=== PATIENT | male | born 1955 | race Caucasian/White ===

== ENCOUNTER → 2017-11-07 | Day surgery (SDC) | payer MEDICARE, MEDICAID ==
[~2017-11-07] VITALS: Ht 162.6 cm; Wt 56.7 kg
[2017-11-07] VITALS (13 sets, daily range): BP systolic 149–165; BP diastolic 64–79
[~2017-11-07] MED LIST: CARV25TA47 PO; CINA30 PO; FAMO20TA8 PO; FENTANYL CITRATE/PF 50MCG/ML 2ML VIAL IV ONE; FENTANYL CITRATE/PF 50MCG/ML 2ML VIAL ONE; FERR210T PO; FOLI0.8T23 PO; IOHEXOL-300 100 ML BOTTLE ONE; LIDOCAINE HCL 1% 20ML VIAL (Pyxis) INJ ONE; SODIUM BICARBONATE 4% (2.4MEQ) 5ML VIAL IV ONE
[2017-11-07 09:24] LABS: BASOPHILS % 1.3 % (0.0-2.0); EOSINOPHILS % 4.9 % (0.0-5.0); HEMATOCRIT. 36.8 % (42.0-52.0); HEMOGLOBIN. 12.2 g/dL (14.0-18.0); LYMPHOCYTES % 18.5 % (20.0-50.0); MEAN CORPUSCULAR HEMOGLOBIN 30.8 pg (28.0-32.0); MEAN CORPUSCULAR VOLUME 92.6 fL (80.0-94.0); MONOCYTES % 12.5 % (2.0-8.0); NEUTROPHILS % 62.8 % (40.0-76.0); PLATELET 139 x1000/uL (130-400); RED BLOOD CELL COUNT 3.97 mill/uL (4.7-6.1); RED CELL DISTRIBUTION WIDTH 16.4 % (11.6-14.6)
[2017-11-07 09:29] LABS: INR 1.1; PARTIAL THROMBOPLASTIN TIME 32.2 sec (23.4-31.0)
== END | disposition home or self-care (01) ==
LOC: RADANGIO 08:31
PROVIDERS: ATTEND Internal Medicine
DX: N18.6 End stage renal disease (principal); I74.5 Embolism and thrombosis of iliac artery; Q27.30 Arteriovenous malformation, site unspecified; I13.2 Hypertensive heart and chronic kidney disease with heart failure and with stage 5 chronic kidney disease, or end stage renal disease; I25.2 Old myocardial infarction; E46 Unspecified protein-calorie malnutrition; I50.9 Heart failure, unspecified; Z99.2 Dependence on renal dialysis; Z79.899 Other long term (current) drug therapy; Z87.891 Personal history of nicotine dependence; Z98.890 Other specified postprocedural states; Z82.49 Family history of ischemic heart disease and other diseases of the circulatory system
CPT/HCPCS: 36415; 36902; 82947; 84132; 85025; 85610; 85730; C1725; C1766; C1769; C1887; J1644; J3010; J3490; J7050; Q9967; 99152; 99153

== ENCOUNTER 2018-04-17 03:52 | Inpatient (IN) | payer MEDICARE, MEDICAID ==
[~2018-04-17] VITALS: Ht 315 cm; Wt 60.8 kg
[~2018-04-17 03:52] MED LIST changes: -FENTANYL CITRATE/PF 50MCG/ML 2ML VIAL IV ONE; -FENTANYL CITRATE/PF 50MCG/ML 2ML VIAL ONE; -IOHEXOL-300 100 ML BOTTLE ONE; -LIDOCAINE HCL 1% 20ML VIAL (Pyxis) INJ ONE; -SODIUM BICARBONATE 4% (2.4MEQ) 5ML VIAL IV ONE
[2018-04-17] MEDS ORDERED: LIDOCAINE HCL/PF 1% 10 MG/ML 5ML VIAL IJ ONE (04:30)
[2018-04-17] MEDS ORDERED: BACITRACIN ZINC OINT UDPKT TOP ONE (04:30)
[2018-04-17 05:40] LABS: BASOPHILS % 0.6 % (0.0-2.0); EOSINOPHILS % 3.5 % (0.0-5.0); HEMATOCRIT. 43.6 % (42.0-52.0); HEMOGLOBIN. 14.6 g/dL (14.0-18.0); LYMPHOCYTES % 17.1 % (20.0-50.0); MEAN CORPUSCULAR HEMOGLOBIN 32.1 pg (28.0-32.0); MEAN CORPUSCULAR VOLUME 96.1 fL (80.0-94.0); NEUTROPHILS % 65.8 % (40.0-76.0); PLATELET 123 x1000/uL (130-400); RED BLOOD CELL COUNT 4.54 mill/uL (4.7-6.1); RED CELL DISTRIBUTION WIDTH 15.4 % (11.6-14.6)
[2018-04-17 05:44] LABS: CHLORIDE 101 mEq/L (98-107)
[2018-04-17 05:45] LABS: INR 1.1; PARTIAL THROMBOPLASTIN TIME 31.7 sec (23.4-31.0); PROTHROMBIN TIME 10.6 sec (9.1-11.1)
[2018-04-17] MEDS ORDERED: ACETAMINOPHEN 500MG TABLET PO ONE (10:30)
[2018-04-17] MEDS ORDERED: ACETAMINOPHEN 500MG TABLET PO PRN (10:45)
[2018-04-17] MEDS ORDERED: BISACODYL 10MG SUPP PR PRN (11:00)
[2018-04-17 17:30] VITALS: BP 188/79
[2018-04-17] MEDS ORDERED: DIPHENHYDRAMINE 50MG/ML VIAL IV PRN (18:43)
[2018-04-17] MEDS ORDERED: GUAIFENESIN-DM 200MG-20MG/10ML UDC PO PRN (18:48)
[2018-04-17] MEDS ORDERED: ATOR20TA PO (19:03)
[2018-04-17 20:00] VITALS: BP 172/78
[2018-04-17] MEDS: CARVEDILOL 25MG TABLET PO SCH (20:35)
[2018-04-17] MEDS: FOLIC ACID/VITAMIN B COMP W-C TABLET PO SCH (20:35)
[2018-04-17] MEDS: FAMOTIDINE 20MG TABLET PO SCH (20:35)
[2018-04-18] VITALS (13 sets, daily range): BP systolic 119–198; BP diastolic 50–85
[2018-04-18] MEDS: LOSARTAN POTASSIUM 25 MG TABLET PO SCH ×2 (00:15→09:00)
[2018-04-18] MEDS ORDERED: AURYXIA PO (05:38)
[2018-04-18 06:51] LABS: BASOPHILS % 0.9 % (0.0-2.0); EOSINOPHILS % 4.2 % (0.0-5.0); HEMATOCRIT. 40.4 % (42.0-52.0); HEMOGLOBIN. 13.5 g/dL (14.0-18.0); LYMPHOCYTES % 19.6 % (20.0-50.0); MEAN CORPUSCULAR VOLUME 95.5 fL (80.0-94.0); MONOCYTES % 11.2 % (2.0-8.0); NEUTROPHILS % 64.1 % (40.0-76.0); PLATELET 116 x1000/uL (130-400); RED BLOOD CELL COUNT 4.23 mill/uL (4.7-6.1); RED CELL DISTRIBUTION WIDTH 15.2 % (11.6-14.6)
[2018-04-18] MEDS: CARVEDILOL 25MG TABLET PO SCH ×2 (09:00→17:00)
[2018-04-18] MEDS ORDERED: LOSARTAN POTASSIUM 25 MG TABLET PO SCH (09:00)
[2018-04-18] MEDS ORDERED: LIDOCAINE HCL 1% 20ML VIAL (Pyxis) INJ ONE (14:13)
[2018-04-18] MEDS ORDERED: IOHEXOL-300 100 ML BOTTLE ONE (14:14)
[2018-04-18] MEDS ORDERED: FENTANYL CITRATE/PF 50MCG/ML 2ML VIAL IV ONE (14:15)
[2018-04-18] MEDS ORDERED: FENTANYL CITRATE/PF 50MCG/ML 2ML VIAL ONE (14:24)
[2018-04-18] MEDS: FOLIC ACID/VITAMIN B COMP W-C TABLET PO SCH (20:00)
[2018-04-18] MEDS ORDERED: DIPHENHYDRAMINE 50MG/ML VIAL IV SCH (21:00)
[2018-04-18] MEDS: FAMOTIDINE 20MG TABLET PO SCH (21:00)
[2018-04-19] VITALS: BP 147/62
[2018-04-19] MEDS ORDERED: DIPHENHYDRAMINE 25MG CAPSULE PO SCH
[2018-04-19] MEDS ORDERED: DIPHENHYDRAMINE 50MG/ML VIAL IV SCH (02:00)
[2018-04-19 04:00] VITALS: BP 152/65
[2018-04-19 08:00] VITALS: BP 108/59
[2018-04-19] MEDS: LOSARTAN POTASSIUM 25 MG TABLET PO SCH (09:00)
[2018-04-19] MEDS: FOLIC ACID/VITAMIN B COMP W-C TABLET PO SCH (09:00)
[2018-04-19] MEDS: CARVEDILOL 25MG TABLET PO SCH (09:00)
[2018-04-19] MEDS ORDERED: GELATIN SPONGE,ABSORBABLE 12-7MM SPONGE ONE (10:27)
[2018-04-19] MEDS ORDERED: PAPAVERINE HCL 30 MG/ML 2ML IV ONE (10:28)
[2018-04-19] MEDS ORDERED: LIDOCAINE HCL 1% 20ML VIAL (Pyxis) INJ ONE (10:28)
[2018-04-19] MEDS ORDERED: BACITRACIN 15GM TUBE TOP ONE (10:28)
[2018-04-19] MEDS ORDERED: HEPARIN SODIUM 1,000 UNIT/1ML VIAL IV ONE (10:29)
[2018-04-19] MEDS ORDERED: BUPIVACAINE HCL/PF 0.5% (5MG/ML) 10ML ONE (10:29)
[2018-04-19] MEDS ORDERED: THROMBIN (BOVINE) 5000 UNITS/VIAL TOP ONE ×2 (10:29→10:30)
[2018-04-19] MEDS ORDERED: NORMAL SALINE 0.9% 10 ML SYR ONE (10:30)
[2018-04-19] MEDS ORDERED: BACITRACIN 50,000 UNITS/VIAL ONE (10:30)
[2018-04-19 11:55] LABS: HEMATOCRIT 42.3 % (42.0-52.0); HEMOGLOBIN 14.1 g/dL (14.0-18.0); MEAN CORPUSCULAR HEMOGLOBIN 31.7 pg (28.0-32.0); MEAN CORPUSCULAR VOLUME 95.2 fL (80.0-94.0); PLATELET 121 x1000/uL (130-400); RED BLOOD CELL COUNT 4.44 mill/uL (4.7-6.1); RED CELL DISTRIBUTION WIDTH 15.3 % (11.6-14.6)
[2018-04-19 12:26] VITALS: BP 108/59
== END 2018-04-19 13:35 | disposition home or self-care (01) | DRG 252 ==
LOC: ER 03:52 → 6WST 06:11 → EDBEDREQTM 06:15 → EDBEDREQ 06:15 → ENRESERV 15:30
PROVIDERS: ADMIT Internal Medicine; ATTEND Internal Medicine
PROC: 0HQCXZZ Repair Left Upper Arm Skin, External Approach (ICD-10-PCS; 2018-04-17)
PROC: 057Y3ZZ Dilation of Upper Vein, Percutaneous Approach (ICD-10-PCS; principal; 2018-04-18)
PROC: B5171ZZ Fluoroscopy of Left Subclavian Vein using Low Osmolar Contrast (ICD-10-PCS; 2018-04-18)
PROC: B51N1ZZ Fluoroscopy of Left Upper Extremity Veins using Low Osmolar Contrast (ICD-10-PCS; 2018-04-18)
PROC: B5181ZZ Fluoroscopy of Superior Vena Cava using Low Osmolar Contrast (ICD-10-PCS; 2018-04-18)
DX: T82.838A Hemorrhage due to vascular prosthetic devices, implants and grafts, initial encounter (principal); N18.6 End stage renal disease; I50.32 Chronic diastolic (congestive) heart failure; N25.81 Secondary hyperparathyroidism of renal origin; I13.2 Hypertensive heart and chronic kidney disease with heart failure and with stage 5 chronic kidney disease, or end stage renal disease; Y84.1 Kidney dialysis as the cause of abnormal reaction of the patient, or of later complication, without mention of misadventure at the time of the procedure; E78.00 Pure hypercholesterolemia, unspecified; I25.10 Atherosclerotic heart disease of native coronary artery without angina pectoris; I25.5 Ischemic cardiomyopathy; S41.112A Laceration without foreign body of left upper arm, initial encounter; X58.XXXA Exposure to other specified factors, initial encounter; Y93.89 Activity, other specified; Y99.8 Other external cause status; Y92.89 Other specified places as the place of occurrence of the external cause; Z99.2 Dependence on renal dialysis; Z87.01 Personal history of pneumonia (recurrent); Z79.02 Long term (current) use of antithrombotics/antiplatelets; Z79.82 Long term (current) use of aspirin; Z79.899 Other long term (current) drug therapy
CPT/HCPCS: 12001; 36415; 36902; 71046; 80048; 80069; 83880; 84484; 85027; 93005; 99285; C1725; C1769; J1200; J1644; J2440; J3010; J3490; Q9967